=== PATIENT | male | born 1975 | race Caucasian/White ===

== ENCOUNTER 2024-04-29 11:29 | Emergency (ER) | payer OTHER ==
[~2024-04-29] VITALS: Ht 188 cm; Wt 130.0 kg
[2024-04-29 11:36] VITALS: O2SAT 98
[2024-04-29] MEDS: KETOROLAC 30MG/ML VIAL IM ONE (12:38)
[2024-04-29 12:39] VITALS: BP 142/97; PULSE 79; RESP 16; TEMP 36.5; O2SAT 96
[2024-04-29 12:57] LABS: BASOPHILS % 0.4 % (0.0-2.0); EOSINOPHILS % 0.3 % (0.0-5.0); HEMATOCRIT. 40.8 % (42.0-52.0); HEMOGLOBIN. 14.1 g/dL (14.0-18.0); LYMPHOCYTES % 26.1 % (20.0-50.0); MEAN CORPUSCULAR HEMOGLOBIN 30.6 pg (28.0-32.0); MEAN CORPUSCULAR HGB CONC 34.4 g/dL (31.0-37.0); MEAN CORPUSCULAR VOLUME 88.8 fL (80.0-94.0); MEAN PLATELET VOLUME 7.6 fl (7.4-10.4); MONOCYTES % 7.7 % (2.0-8.0); NEUTROPHILS % 65.5 % (40.0-76.0); PLATELET 218 x1000/uL (130-400); RED CELL DISTRIBUTION WIDTH 13.1 % (11.6-14.6); WHITE BLOOD COUNT 9.4 x1000/uL (4.5-11.0)
[2024-04-29 13:11] LABS: CHLORIDE 103 mEq/L (98-107); POTASSIUM 3.8 mEq/L (3.5-5.1); SODIUM 134 mEq/L (136-145)
[2024-04-29 13:12] LABS: CALCIUM 8.8 mg/dL (8.7-10.4); CARBON DIOXIDE 22 mEq/L (21-32)
[2024-04-29 13:17] LABS: CREATININE 1.1 mg/dL (0.6-1.3); GLUCOSE 139 mg/dL (70-105); UREA NITROGEN BLOOD 14 mg/dL (9-23)
[2024-04-29] MEDS ORDERED: SULF1TAB48 MT (15:19)
[2024-04-29] MEDS ORDERED: KETO10TA2 MT (15:19)
[2024-04-29] MEDS ORDERED: CEPH500T MT (15:19)
== END 2024-04-29 15:38 | disposition home or self-care (01) ==
LOC: ER 11:29
DX: L03.116 Cellulitis of left lower limb (principal); Z88.1 Allergy status to other antibiotic agents
CPT/HCPCS: 99285; 93971; 80048; 85025; 36415; 96372; J1885